=== PATIENT | male | born 1955 | race Caucasian/White ===

== ENCOUNTER → 2017-04-22 | Outpatient (CLI) | payer OTHER | END | disposition home or self-care (01) | LOC: CFH 12:48 | PROVIDERS: ATTEND Nurse Practitioner | DX: Z12.2 Encounter for screening for malignant neoplasm of respiratory organs (principal); I25.10 Atherosclerotic heart disease of native coronary artery without angina pectoris; J98.4 Other disorders of lung; F17.210 Nicotine dependence, cigarettes, uncomplicated | CPT/HCPCS: G0297 ==

== ENCOUNTER 2019-05-26 06:58 | Emergency (ER) | payer OTHER ==
[~2019-05-26] VITALS: Ht 177.8 cm; Wt 105.9 kg
[2019-05-26 11:02] VITALS: BP 118/64
== END 2019-05-26 11:04 | disposition home or self-care (01) ==
LOC: ED 11:00
DX: L03.115 Cellulitis of right lower limb (principal); I10 Essential (primary) hypertension; E11.9 Type 2 diabetes mellitus without complications; M19.90 Unspecified osteoarthritis, unspecified site
CPT/HCPCS: 36415; 73630; 80048; 82040; 85025; 87040; 96365; 99284; J0295

== ENCOUNTER 2020-02-06 06:51 | Outpatient (CLI) | payer MEDICARE ==
[2020-02-06] MEDS ORDERED: REGADENOSON 0.4 MG/5 ML SYRINGE ONE (07:33)
== END 2020-02-06 23:59 | disposition home or self-care (01) ==
LOC: CFH 06:51
PROVIDERS: ATTEND Internal Medicine Cardiovascular Disease
DX: I51.7 Cardiomegaly (principal); I10 Essential (primary) hypertension; Z98.61 Coronary angioplasty status
CPT/HCPCS: 78452; 93017; 93306; A9502; J2785

== ENCOUNTER 2021-01-24 14:13 | Outpatient (CLI) | payer MEDICARE ==
[~2021-01-24 14:13] MED LIST: AMIO200T42 PO; AMLO-211 PO; ASPI-963 PO; ATEN25TA PO; ATOR-2 PO; CHLO50TA PO; CHOL10003 PO; CLOP75TA PO; ENAL20TA9 PO; FOLI0.4T5 PO; GABA300C PO; GEMF-31 PO; LOVA40TA2 PO; METF500T17 PO; POTA20TA14 PO
== END 2021-01-24 23:59 | disposition home or self-care (01) ==
LOC: CVU 14:13
PROVIDERS: ATTEND Internal Medicine Cardiovascular Disease
DX: I35.8 Other nonrheumatic aortic valve disorders (principal); I11.9 Hypertensive heart disease without heart failure; I48.91 Unspecified atrial fibrillation
CPT/HCPCS: 93306